=== PATIENT | female | born 1950 | race Caucasian/White ===

== ENCOUNTER → 2016-07-05 | Outpatient (CLI) | payer OTHER ==
[~2016-07-05] MED LIST: CLINDAMYCIN GEL TOP; CLOB-65 EXT; CLOTRIMAZOLE TOP; CLR10 PO; DEXL30CA5 PO; DICL1GEL28 TOP; LEVAAER2 INH; LEVO75CA2 PO; OXYB5TAB74 PO; PYRI60TA2 PO
== END | disposition home or self-care (01) ==
LOC: C.LABBC 12:54
PROVIDERS: ATTEND Psychiatry & Neurology Neurology
DX: G70.00 Myasthenia gravis without (acute) exacerbation (principal)

== ENCOUNTER → 2016-09-22 | Outpatient (CLI) | payer OTHER ==
[~2016-09-22] VITALS: Ht 156.2 cm; Wt 92.1 kg
[2016-09-22 13:58] VITALS: Ht 156.2 cm; Wt 92.1 kg
--- NOTE | 2016-09-22 14:54 | PAT Medication Instructions ---
Service Date September 22, 2016. Current Home Medication List Clobetasol Propionate 0.05% (Temovate 0.05%), 1 APPLN EXT UD PRN for PRN Dexlansoprazole (Dexilant), 1 TAB PO QAM Diclofenac Sod (Voltaren 1% Top Gel), 1 DOSE TOP PRN Levalbuterol (Xopenex Hfa), 2 PUFFS INH Q4 PRN for SOB/Wheezing Levothyroxine Sodium (Tirosint), 75 MCG PO QAM Loratadine (Claritin), 10 MG PO QAM Oxybutynin Chloride (Ditropan), 5 MG PO BID Pyridostigmine Berino (Mestinon), 30 MG PO QID [Clindamycin Gel], 1 DOSE TOP UD PRN for PRN [Clotrimazole], 1 APPLN TOP UD PRN for PRN Medication Instructions For Your Scheduled Surgery - Hold the following medications 24 hours prior to surgery: Clindamycin Gel 1 DOSE TOP UD PRN for PRN Clotrimazole 1 APPLN TOP UD PRN for PRN Diclofenac Sod (Voltaren 1% Top Gel), 1 DOSE TOP PRN Clobetasol Propionate 0.05% (Temovate 0.05%), 1 APPLN EXT UD PRN for PRN - Hold the following medications the morning of surgery: Oxybutynin Chloride (Ditropan), 5 MG PO BID Loratadine (Claritin), 10 MG PO QAM - Take the following medications the morning of surgery with a sip of water: Levothyroxine Sodium (Tirosint), 75 MCG PO QAM Dexlansoprazole (Dexilant), 1 TAB PO QAM Pyridostigmine Berino (Mestinon), 30 MG PO QID Levalbuterol (Xopenex Hfa), 2 PUFFS INH Q4 PRN for SOB/Wheezing (bring with you to hospital on day of surgery) - Take the following medications as scheduled the night before surgery: Oxybutynin Chloride (Ditropan), 5 MG PO BID Pyridostigmine Berino (Mestinon), 30 MG PO QID Levalbuterol (Xopenex Hfa), 2 PUFFS INH Q4 PRN for SOB/Wheezing If you have any questions please call us at [phone] or [phone] ( [place]) or [phone]
--- NOTE | 2016-09-22 15:28 | DIAGNOSTIC IMAGING REPORT ---
CHEST PREADMISSION(PA/LAT) HISTORY: Preop. COMPARISON: Chest 10/31/2015. FINDINGS: The lungs are clear. Cardiac silhouette is top normal in size. No pleural effusions. No pneumothorax. IMPRESSION: No acute process. Electronically signed by: Calvin Aguayo M.D. 09/22/2016 3:27 PM Dictated Date/Time: 09/22/2016 3:25 PM
[2016-09-22 15:39] LABS: BASO % 0.7 %; BASO ABS # 0.05 K/uL (0-0.2); COMPLETE YES; EOS % 4.7 %; HEMATOCRIT 39.7 % (37-47); IG% 0.1 %; LYMPH % 37.6 %; LYMPH ABS # 2.54 K/uL (1.2-3.4); MEAN CELL VOLUME 84.3 fL (80-100); MEAN CORPUSCULAR HEMOGLOBIN 27.8 pg (25-34); MEAN PLATELET VOLUME 10.1 fL (7.4-10.4); NEUT % 47.9 %; PLATELET COUNT 301 K/uL (130-400); RED BLOOD COUNT 4.71 M/uL (4.2-5.4); WHITE BLOOD COUNT 6.75 K/uL (4.8-10.8)
[2016-09-22 15:39] LABS: URINE APPEARANCE CLEAR (CLEAR); URINE BILIRUBIN NEG (NEG); URINE COLOR YELLOW; URINE NITRITE NEG (NEG); URINE PH 5.5 (4.5-7.5); URINE SPECIFIC GRAVITY 1.008 (1.000-1.030); UROBILINOGEN NEG (NEG)
[2016-09-22 15:40] LABS: MANUAL MICROSCOPIC REQUIRED? NO; REVIEW REQ? NO
[2016-09-22 15:51] LABS: INR 0.9 (0.9-1.1); PARTIAL THROMBOPLASTIN RATIO 1.1; PROTHROMBIN TIME (PATIENT) 9.9 SECONDS (9.0-12.0)
[2016-09-23 06:24] LABS: ESTIMATED AVERAGE GLUCOSE 126 mg/dl; HA1C FLAG Normal (Normal)
--- NOTE | 2016-11-30 06:11 | CODING QUERY MEDICAL NECESSITY ---
CQSUPPORTING DIAGNOSIS NEEDED A supporting diagnosis is required for the test/procedure performed on this patient in order for us to be reimbursed by the patient's insurance. Please provide a supporting diagnosis for the following test/procedure listed below next to the test name along with your signature. *If there is no additional diagnosis for this patient that would support the following test/procedure please document that below next to the test/procedure. Test(s)/Procedure(s) that require a supporting diagnosis: DOS 09/22/16 GLYCATED HEMOGLOBIN URINE CULTURE QUERY WAS RETURNED WITH SIGNATURE BUT NO DIAGNOSIS PLEASE ADD DIAGNOSIS AND SIGNATURE THANK YOU Provider Signature: Date: Thank you Isabel Gomes Health Information Management Once completed, please kindly fax back to [phone] For questions please call [phone]
== END | disposition home or self-care (01) ==
LOC: C.LAB 08:00 → EDSTATUS 10-13 11:00
PROVIDERS: ATTEND Orthopaedic Surgery
DX: Z01.818 Encounter for other preprocedural examination (principal); M17.9 Osteoarthritis of knee, unspecified; Z79.899 Other long term (current) drug therapy

== ENCOUNTER → 2016-09-22 | Outpatient (CLI) | payer OTHER ==
[~2016-09-22] MED LIST changes: +DTR/5 PO; -OXYB5TAB74 PO
[2016-09-22 16:27] LABS: ALT/SGPT 40 U/L (12-78); AST/SGOT 6 U/L (15-37); BLOOD UREA NITROGEN 11 mg/dl (7-18); BUN/CREATININE RATIO 17.1 (10-20); CALCIUM 8.8 mg/dl (8.5-10.1); CARBON DIOXIDE 30 mmol/L (21-32); CHLORIDE 107 mmol/L (98-107); CREATININE 0.63 mg/dl (0.60-1.20); GLUCOSE 87 mg/dl (70-99); POTASSIUM 4.2 mmol/L (3.5-5.1); SODIUM 141 mmol/L (136-145)
[2016-09-22 16:39] LABS: ALB/GLOB RATIO 1.2 (0.9-2); ALKALINE PHOSPHATASE 116 U/L (45-117); THYROID STIMULATING HORMONE 0.784 uIu/ml (0.300-4.500)
== END | disposition home or self-care (01) ==
LOC: C.LAB 13:45
PROVIDERS: ATTEND Physician Assistant
DX: G70.00 Myasthenia gravis without (acute) exacerbation (principal)

== ENCOUNTER → 2017-06-30 | Outpatient (CLI) | payer OTHER ==
[2017-06-30 12:40] LABS: BASO % 0.6 %; BASO ABS # 0.04 K/uL (0-0.2); HEMATOCRIT 38.8 % (37-47); HEMOGLOBIN 12.8 g/dL (12.0-16.0); IG# 0.01 K/uL (0.00-0.02); LYMPH % 32.7 %; LYMPH ABS # 2.21 K/uL (1.2-3.4); MEAN CELL VOLUME 85.8 fL (80-100); MEAN CORPUSCULAR HEMOGLOBIN 28.3 pg (25-34); MEAN PLATELET VOLUME 10.3 fL (7.4-10.4); MONO % 9.2 %; MONO ABS # 0.62 K/uL (0.11-0.59); NEUT % 54.4 %; NEUT ABS # 3.68 K/uL (1.4-6.5); PLATELET COUNT 281 K/uL (130-400); RED CELL DISTRIBUTION WIDTH CV 14.7 % (11.5-14.5); WHITE BLOOD COUNT 6.76 K/uL (4.8-10.8)
[2017-06-30 14:33] LABS: ALBUMIN 3.9 gm/dl (3.4-5.0); ALT/SGPT 31 U/L (12-78); BLOOD UREA NITROGEN 17 mg/dl (7-18); CALCIUM 8.9 mg/dl (8.5-10.1); CARBON DIOXIDE 24 mmol/L (21-32); CREATININE 0.71 mg/dl (0.60-1.20); GLUCOSE 93 mg/dl (70-99); POTASSIUM 3.7 mmol/L (3.5-5.1); SODIUM 137 mmol/L (136-145)
[2017-06-30 14:42] LABS: ALKALINE PHOSPHATASE 76 U/L (45-117); AST/SGOT 5 U/L (15-37); TRANSFERRIN 269 mg/dl (200-360)
== END | disposition home or self-care (01) ==
LOC: C.LABMFLN 09:31
PROVIDERS: ATTEND Psychiatry & Neurology Neurology
DX: E78.5 Hyperlipidemia, unspecified (principal); G70.00 Myasthenia gravis without (acute) exacerbation; E03.9 Hypothyroidism, unspecified; R19.7 Diarrhea, unspecified; R53.82 Chronic fatigue, unspecified

== ENCOUNTER → 2017-12-02 | Outpatient (CLI) | payer OTHER ==
--- NOTE | 2017-12-02 10:09 | DIAGNOSTIC IMAGING REPORT ---
HEAD WITHOUT CONTRAST (CT) CLINICAL HISTORY: 67 years-old Female with R53.82 Chronic [id number] Vision [id number] Right-sided he. Acute fatigue with blurry vision and right-sided headache TECHNIQUE: Multiple axial CT images of the head were obtained without contrast. A dose lowering technique was utilized adhering to the principles of ALARA. CT DOSE: 638.56 mGycm COMPARISON: None. FINDINGS: No acute intracranial hemorrhage, midline shift, intracranial mass, hydrocephalus, territorial ischemia or abnormal extra-axial collection. Cerebral vascular calcifications are noted. The calvarium is intact. Mild polypoid mucosal thickening of the right maxillary sinus. Mastoid air cells and middle ear cavities are clear. The soft tissues and orbits are unremarkable. IMPRESSION: No acute intracranial abnormality. The above report was generated using voice recognition software. It may contain grammatical, syntax or spelling errors. Electronically signed by: Praful Andre M.D. 12/02/2017 10:08 AM Dictated Date/Time: 12/02/2017 10:06 AM
== END | disposition home or self-care (01) ==
LOC: C.CTS 09:45
PROVIDERS: ATTEND Physician Assistant
DX: R53.82 Chronic fatigue, unspecified (principal); R51 Headache; H53.9 Unspecified visual disturbance

== ENCOUNTER → 2017-12-30 | Outpatient (CLI) | payer OTHER ==
[2017-12-30 12:37] LABS: BASO % 0.2 %; BASO ABS # 0.02 K/uL (0-0.2); EOS % 0.2 %; EOS ABS # 0.03 K/uL (0-0.5); HEMATOCRIT 39.7 % (37-47); IG# 0.06 K/uL (0.00-0.02); LYMPH % 9.1 %; LYMPH ABS # 1.13 K/uL (1.2-3.4); MEAN CELL VOLUME 85.4 fL (80-100); MEAN CORPUSCULAR HGB CONC 32.7 g/dl (32-36); MEAN PLATELET VOLUME 10.6 fL (7.4-10.4); MONO % 3.2 %; MONO ABS # 0.39 K/uL (0.11-0.59); NEUT % 86.8 %; NEUT ABS # 10.73 K/uL (1.4-6.5); PLATELET COUNT 284 K/uL (130-400); RED CELL DISTRIBUTION WIDTH CV 15.1 % (11.5-14.5); RED CELL DISTRIBUTION WIDTH SD 46.5 fL (36.4-46.3); WHITE BLOOD COUNT 12.36 K/uL (4.8-10.8)
[2017-12-30 13:00] LABS: ALBUMIN 3.7 gm/dl (3.4-5.0); ALKALINE PHOSPHATASE 80 U/L (45-117); ALT/SGPT 35 U/L (12-78); AST/SGOT 7 U/L (15-37); BLOOD UREA NITROGEN 15 mg/dl (7-18); CALCIUM 8.9 mg/dl (8.5-10.1); CARBON DIOXIDE 24 mmol/L (21-32); CREATININE 0.71 mg/dl (0.60-1.20); GLUCOSE 128 mg/dl (70-99); POTASSIUM 3.7 mmol/L (3.5-5.1); SODIUM 137 mmol/L (136-145)
== END | disposition home or self-care (01) ==
LOC: C.LABMFLN 10:35
PROVIDERS: ATTEND Physician Assistant
DX: G70.00 Myasthenia gravis without (acute) exacerbation (principal)

== ENCOUNTER 2018-07-28 12:02 | Inpatient (IN) ==
--- NOTE | 2018-07-28 13:06 | XRay Report ---
SINGLE VIEW CHEST CLINICAL HISTORY: Generalized weakness. FINDINGS: An AP, portable, upright chest radiograph is compared to study dated 07/10/2018. The examinat ion is degraded by portable technique and patient rotation. The cardiomediastinal silhouette is unre markable, noting atherosclerotic calcification of the thoracic aorta. There is mild elevation of the left hemidiaphragm with associated left basilar atelectasis. No airspace consolidation or large pleur al effusion is identified. No pneumothorax is seen. The skeletal structures are osteopenic. The bony thorax is grossly intact. Degenerative change is noted throughout the thoracic spine. IMPRESSION: No acute cardiopulmonary abnormality. Electronically signed by: Ed Reynolds M.D. 07/28/2018 1:04 PM
[2018-07-28 13:27] LABS: Basophils # (auto) 0.01 K/uL (0-0.2); Basophils % (auto) 0.1 %; Hematocrit (blood only) 40.6 % (37-47); Hemoglobin 13.9 g/dL (12.0-16.0); Immature Granulocytes # (auto) 0.02 K/uL (0.00-0.02); Immature Granulocytes % (auto) 0.2 %; Lymphocytes # (auto) 0.89 K/uL (1.2-3.4); Lymphocytes % (auto) 10.3 %; Mean Corpuscular Hgb Conc 34.2 g/dL (32-36); Mean Corpuscular Volume 83.5 fL (80-100); Mean Platelet Volume 10.4 fL (7.4-10.4); Monocytes # (auto) 0.08 K/uL (0.11-0.59); Monocytes % (auto) 0.9 %; Neutrophils # (auto) 7.61 K/uL (1.4-6.5); Neutrophils % (auto) 88.5 %; Platelet Count 289 K/uL (130-400); RDW Coefficient of Variation 14.1 % (11.5-14.5); RDW Standard Deviation 42.8 fL (36.4-46.3); Red Blood Count 4.86 M/uL (4.2-5.4); White Blood Count 8.61 K/uL (4.8-10.8)
[2018-07-28 13:49] LABS: Alanine Aminotransferase 59 U/L (12-78); Albumin Level 4.1 gm/dl (3.4-5.0); Aspartate Aminotransferase 10 U/L (15-37); BUN Creatinine Ratio 14.8 (10-20); Blood Urea Nitrogen 8 mg/dl (7-18); Calcium 8.9 mg/dl (8.5-10.1); Carbon Dioxide 29 mmol/L (21-32); Chloride 105 mmol/L (98-107); Est GFR (Non-African American) 95.8; Glucose 136 mg/dl (70-99); Magnesium 2.1 mg/dl (1.8-2.4); Potassium 2.9 mmol/L (3.5-5.1); Sodium 140 mmol/L (136-145)
[2018-07-28 14:00] LABS: Albumin Globulin Ratio 1.3 (0.9-2); Alkaline Phosphatase 78 U/L (45-117); Bilirubin,Total 0.6 mg/dl (0.2-1); Globulin 3.2 gm/dl (2.5-4.0); Phosphorus 2.9 mg/dl (2.5-4.9); Total Protein 7.3 gm/dl (6.4-8.2)
[2018-07-28 14:18] LABS: Appearance Urine Clear (Clear); Bilirubin Urine Negative (Negative); Blood Urine Negative (Negative); Color Urine Yellow; Glucose Urine UA Negative (Negative); Ketones Urine 2+ (Negative); Leukocyte Esterase Urine Negative (Negative); Nitrite Urine Negative (Negative); Protein Urine Negative (Negative); Specific Gravity Urine 1.013 (1.000-1.030); Urobilinogen Urine Negative (Negative); pH Urine 7.5 (4.5-7.5)
--- NOTE | 2018-07-28 14:24 | Emergency Department Note ---
Entered by Dianne Ricks acting as a scribe for History of Present Illness General Chief complaint: Referred by Doctor Stated complaint: myasthenia gravis- weakness, vision problems Source: patient Mode of arrival: ambulatory Limitations: no limitations History of Present Illness Onset (ago): day(s) 6 Location: chest Pain Consistency: + constant Maximum Pain Intensity: 3 Exacerbated By: + movement Associated symptoms: + weakness and + other (The patient complains of vision problems.) The patient is a 68 year old female with a history of myasthenia gravis and asthma who presents to the ED with complaints of constant weakness that onset 6 days ago. She states that she was referred from her cardiologists office. She notes that she went to the ED on 07/22, 07/23, and 07/24 for weakness, diarrhea, and vision problems. The patient states that on 07/24, she was admitted into the hospital. The patient notes she had a medication reduction at this time. The patient states that her black ash worker changed her medications again on 07/25. She notes that her diarrhea has since resolved. The patient states that movement exacerbates her shortness of breath. The patient complains of weakness and vision problems that are worsening due to her MG. Home Medications Home Medications Medication Instructions Recorded Confirmed Type acetaminophen [Tylenol Extra 1,000 mg PO Q6H PRN 07/28/18 07/28/18 History Strength] clindamycin phosphate 1 applic TOPICAL DAILY PRN 07/28/18 07/28/18 History dexlansoprazole [Dexilant] 30 mg PO QAM 07/28/18 07/28/18 History diphenoxylate-atropine [Lomotil] 1 tab PO Q6H PRN 07/28/18 07/28/18 History ipratropium bromide 2.5 ml INHALATION Q4H PRN 07/28/18 07/28/18 History levalbuterol tartrate 2 puff INHALATION Q4H PRN 07/28/18 07/28/18 History levothyroxine [Tirosint] 75 mcg PO QAM 07/28/18 07/28/18 History mycophenolate mofetil 250 mg PO BID 07/28/18 07/28/18 History mycophenolate mofetil 500 mg PO BID 07/28/18 07/28/18 History ondansetron HCl [Zofran] 4 mg PO BID PRN 07/28/18 07/28/18 History prednisone 5 mg PO Q2D 07/28/18 07/28/18 History prednisone 40 mg PO Q2D 07/28/18 07/28/18 History pyridostigmine bromide 60 mg PO QID 07/28/18 07/28/18 History ranitidine HCl [Zantac] 150 mg PO BID PRN 07/28/18 07/28/18 History Allergies Allergy/AdvReac Type Severity Reaction Status Date / Time adhesive Allergy Unknown skin Verified 07/28/18 14:26 tearing albuterol Allergy Unknown TACHYCARDIA Verified 11/18/15 11:37 amoxicillin Allergy Unknown NAUSEA/VOMI Verified 09/22/16 13:54 TING Cipro Allergy Unknown HIVES Verified 09/22/16 13:54 ciprofloxacin Allergy Unknown HIVES Verified 07/28/18 14:21 docetaxel Allergy Unknown difficulty Verified 09/22/16 13:54 breathing, chest pain fluticasone Allergy Unknown TACHYCARDIA Verified 09/22/16 13:54 moxifloxacin Allergy Unknown PT UNSURE Verified 09/22/16 13:54 salmeterol Allergy Unknown TACHYCARDIA Verified 09/22/16 13:54 Sulfa (Sulfonamide Allergy Unknown HIVES Verified 09/22/16 13:54 Antibiotics) sulfamethoxazole AdvReac Severe nausea/vomi Unverified 07/28/18 14:21 [From Bactrim] ting trimethoprim [From Bactrim] AdvReac Severe nausea/vomi Unverified 07/28/18 14:21 ting Unclassified Drugs Allergy Unknown LAVENDER Uncoded 09/22/16 13:54 DYE-HIVES Past Med/Surg History Medical History History of uterine cancer (Chronic) 2012. S/P hysterectomy History of breast cancer (Chronic) 2012 - s/p R partial mastectomy, chemo, radiation History of hysterectomy (Chronic) GERD (gastroesophageal reflux disease) (Chronic) IBS (irritable bowel syndrome) (Chronic) Hypothyroidism (Chronic) Asthma (Chronic) Myasthenia gravis (Chronic) Surgical History History of lumbar surgery (Chronic) History of carpal tunnel surgery (Chronic) History of cholecystectomy (Chronic) History of appendectomy (Chronic) Hx of tonsillectomy (Chronic) Social History Preferred Language: Ken[place] Communication Ability: Effective Prop And Scenery Maker Required: No Beliefs That Will Affect Care: Restoration Current Living Situation: Family and Other Current Living Situation Comment: lives with Anil lackey and sonRicco Other Information That Helps Us Care for You: No Feels Safe at Home: Yes Smoking Status: Never smoker Hx Alcohol Use: Yes Hx Substance Use: No Review of Systems See HPI for pertinent positives & negatives. and A total of 10 systems reviewed and were otherwise negative Physical Exam Vital Signs Vital Signs - 24 hr 07/28/18 12:03 07/28/18 12:06 07/28/18 12:44 Temperature 36.8 C Temperature Source Oral Oral Sepsis Recent Fever Within 48 Hours No Sepsis New/Unexplained Change in Mental Status No Sepsis Action Taken by Nursing No Action Required Pulse Rate 88 Pulse Rate [Left Finger] Pulse Rhythm [Left Finger] Respiratory Rate 12 Respiratory Effort / Characteristics Non-Labored Spontaneous Respiratory Depth Normal Respiratory Pattern Blood Pressure 177/104 H Blood Pressure [Left Arm] Blood Pressure Mean 128 Blood Pressure Mean [Left Arm] Pulse Oximetry 95 96 Pulse Oximetry [Right Index Finger] Oxygen Delivery Method Room Air Room Air Oxygen Delivery Method [Right Index Finger] 07/28/18 14:03 07/28/18 15:31 07/28/18 15:32 Temperature Temperature Source Sepsis Recent Fever Within 48 Hours Sepsis New/Unexplained Change in Mental Status Sepsis Action Taken by Nursing Pulse Rate 79 Pulse Rate [Left Finger] 78 Pulse Rhythm [Left Finger] Respiratory Rate 18 20 Respiratory Effort / Characteristics Respiratory Depth Respiratory Pattern Blood Pressure 160/109 H Blood Pressure [Left Arm] 174/83 H Blood Pressure Mean Blood Pressure Mean [Left Arm] 113 Pulse Oximetry 96 97 Pulse Oximetry [Right Index Finger] Oxygen Delivery Method Room Air Room Air Oxygen Delivery Method [Right Index Finger] 07/28/18 16:08 Temperature 37.2 C Temperature Source Oral Sepsis Recent Fever Within 48 Hours Sepsis New/Unexplained Change in Mental Status Sepsis Action Taken by Nursing Pulse Rate Pulse Rate [Left Finger] 109 H Pulse Rhythm [Left Finger] Regular Respiratory Rate 14 Respiratory Effort / Characteristics Non-Labored Respiratory Depth Normal Respiratory Pattern Regular Blood Pressure Blood Pressure [Left Arm] 187/98 H Blood Pressure Mean Blood Pressure Mean [Left Arm] 127 Pulse Oximetry 94 Pulse Oximetry [Right Index Finger] 94 Oxygen Delivery Method Room Air Oxygen Delivery Method [Right Index Finger] Room Air GENERAL: Awake, alert, weak-appearing, in no distress, she has some head bobbing. HENT: Normocephalic, atraumatic. Oropharynx unremarkable. EYES: Normal conjunctiva. Sclera non-icteric. NECK: Supple. No nuchal rigidity. RESPIRATORY: Clear to auscultation. No wheezes. Normal respiratory effort. CARDIAC: Normal rate. Normal rhythm. Extremities warm and well perfused. GI: Soft, non-distended. No tenderness to palpation. No rebound or guarding. RECTAL: Deferred. MUSCULOSKELETAL: Atraumatic. Chest examination reveals no tenderness. UPPER EXTREMITIES: Contusions on forearms. LOWER EXTREMITIES: Calves are equal size bilaterally and non-tender. No edema NEURO: Normal sensorium. No sensory or motor deficits noted. No facial droop. SKIN: Warm and dry. No rash or jaundice noted. Course 1222: Past medical records reviewed. The patient was evaluated in room A4, and a complete history and physical examination were performed. 1252: I reviewed the patient's case with Dr. Arjun Hitchcock. He recommends transfer to tertiary care center. 1334: I reviewed the patient's case with Dr. Cameron Liu. He s tates that they are unable to accept the patient due to lack of beds. He says to try IVIG. 1345: I reviewed the patient's case with Dr. Arjun Hitchcock. He recommends [place]. If the patient is still refusing transfer, he states to admit her to the ICU here. 1355: I had an extensive discussion with the patient. She is still refusing transfer to anywhere besides [place]. She is aware of the risks. [facility] has been paged. 1404: I reviewed the patient's [facility]. She will evaluate the patient for further management. 1408: I reviewed the patient's case with Dr. Gonzalez - Industrial Safety And Health Manager. He states that he is unsure if the patient needs ICU care but will happily accept her for further evaluation. Consultations Consultation #1: 1252: I reviewed the patient's case with Dr. Arjun Hitchcock. He recommends transfer to tertiary care center. Time: 12:52 Consultation #2: 1334: I reviewed the patient's case with Dr. Cameron Liu. He states that they are unable to accept the patient due to lack of beds. He says to try IVIG. Time: 13:34 Consultation #3: [id number]: I reviewed the patient's case with Dr. Díaz - Neurology. He recommends [place]. If the patient is still refusing transfer, he states to admit her to the ICU here. Time: 13:45 Additional Consultation(s): 2243: I reviewed the patient's case with [facility] She will evaluate the patient for further management. Medical Decision Making Differential Diagnosis Differential Diagnoses Include: Acute coronary syndrome, myocardial infarction, CVA, TIA, anemia, infection, pneumonia, UTI, pyelonephritis, poor nutrition, dehydration, electrolyte disturbance,hypoglycemia. Medical Records Attestation: I reviewed the patient's medical records. Home Medications Current Medication List: was personally reviewed by me Laboratory Data Attestation: I reviewed the patient's lab results. Result diagrams: 07/28/18 13:15 07/28/18 13:15 Lab Results 07/28/18 07/28/18 07/28/18 Range/Units 13:15 13:15 13:15 WBC 8.61 (4.8-10.8) K/uL RBC 4.86 (4.2-5.4) M/uL Hgb 13.9 (12.0-16.0) g/dL Hct 40.6 (37-47) % MCV 83.5 (80-100) fL MCH 28.6 (25-34) pg MCHC 34.2 (32-36) g/dL RDW Std Deviation 42.8 (36.4-46.3) fL RDW Coeff of Joya 14.1 (11.5-14.5) % Plt Count 289 (130-400) K/uL MPV 10.4 (7.4-10.4) fL Immature Gran % (Auto) 0.2 % Neut % (Auto) 88.5 % Lymph % (Auto) 10.3 % [place] % (Auto) 0.9 % Eos % (Auto) 0.0 % Baso % (Auto) 0.1 % Immature Gran # (Auto) 0.02 (0.00-0.02) K/uL Neut # (Auto) 7.61 H (1.4-6.5) K/uL Lymph # (Auto) 0.89 L (1.2-3.4) K/uL [place] # (Auto) 0.08 L (0.11-0.59) K/uL Eos # (Auto) 0.00 (0-0.5) K/uL Baso # (Auto) 0.01 (0-0.2) K/uL Sodium 140 (136-145) mmol/L Potassium 2.9 L (3.5-5.1) mmol/L Chloride 105 (98-107) mmol/L Carbon Dioxide 29 (21-32) mmol/L Anion Gap 6.0 (3-11) BUN 8 (7-18) mg/dl Creatinine 0.56 L (0.6-1.2) mg/dl Est Cr Clr Drug Dosing Not Reportable Est GFR ( Amer) 111.0 Est GFR (Non-Af Amer) 95.8 BUN/Creatinine Ratio 14.8 (10-20) Glucose 136 H (70-99) mg/dl Calcium 8.9 (8.5-10.1) mg/dl Phosphorus 2.9 (2.5-4.9) mg/dl Magnesium 2.1 (1.8-2.4) mg/dl Total Bilirubin 0.6 (0.2-1) mg/dl AST 10 L (15-37) U/L ALT 59 (12-78) U/L Alkaline Phosphatase 78 (45-117) U/L Troponin I 0.020 (0-0.045) ng/ml Total Protein 7.3 (6.4-8.2) gm/dl Albumin 4.1 (3.4-5.0) gm/dl Globulin 3.2 (2.5-4.0) gm/dl Albumin/Globulin Ratio 1.3 (0.9-2) TSH 0.342 (0.300-4.500) uIu/ml Urine Color Urine Appearance (Clear) Urine pH (4.5-7.5) Ur Specific [place] (1.000-1.030) Urine Protein (Negative) Urine Glucose (UA) (Negative) Urine Ketones (Negative) Urine Blood (Negative) Urine Nitrite (Negative) Urine Bilirubin (Negative) Urine Urobilinogen (Negative) Ur Leukocyte Esterase (Negative) Hepatitis C Ab Screen Neg (Neg) 07/28/18 Range/Units 13:40 WBC (4.8-10.8) K/uL RBC (4.2-5.4) M/uL Hgb (12.0-16.0) g/dL Hct (37-47) % MCV (80-100) fL MCH (25-34) pg MCHC (32-36) g/dL RDW Std Deviation (36.4-46.3) fL RDW Coeff of Joya (11.5-14.5) % Plt Count (130-400) K/uL MPV (7.4-10.4) fL Immature Gran % (Auto) % Neut % (Auto) % Lymph % (Auto) % [place] % (Auto) % Eos % (Auto) % Baso % (Auto) % Immature Gran # (Auto) (0.00-0.02) K/uL Neut # (Auto) (1.4-6.5) K/uL Lymph # (Auto) (1.2-3.4) K/uL [place] # (Auto) (0.11-0.59) K/uL Eos # (Auto) (0-0.5) K/uL Baso # (Auto) (0-0.2) K/uL Sodium (136-145) mmol/L Potassium (3.5-5.1) mmol/L Chloride (98-107) mmol/L Carbon Dioxide (21-32) mmol/L Anion Gap (3-11) BUN (7-18) mg/dl Creatinine (0.6-1.2) mg/dl Est Cr Clr Drug Dosing Est GFR ( Amer) Est GFR (Non-Af Amer) BUN/Creatinine Ratio (10-20) Glucose (70-99) mg/dl Calcium (8.5-10.1) mg/dl Phosphorus (2.5-4.9) mg/dl Magnesium (1.8-2.4) mg/dl Total Bilirubin (0.2-1) mg/dl AST (15-37) U/L ALT (12-78) U/L Alkaline Phosphatase (45-117) U/L Troponin I (0-0.045) ng/ml Total Protein (6.4-8.2) gm/dl Albumin (3.4-5.0) gm/dl Globulin (2.5-4.0) gm/dl Albumin/Globulin Ratio (0.9-2) TSH (0.300-4.500) uIu/ml Urine Color Yellow Urine Appearance Clear (Clear) Urine pH 7.5 (4.5-7.5) Ur Specific [place] 1.013 (1.000-1.030) Urine Protein Negative (Negative) Urine Glucose (UA) Negative (Negative) Urine Ketones 2+ H (Negative) Urine Blood Negative (Negative) Urine Nitrite Negative (Negative) Urine Bilirubin Negative (Negative) Urine Urobilinogen Negative (Negative) Ur Leukocyte Esterase Negative (Negative) Hepatitis C Ab Screen (Neg) Imaging Data Radiologist's Impression: Radiology results as stated below per my review and the radiologist's interpretation: SINGLE VIEW CHEST CLINICAL HISTORY: Generalized weakness. FINDINGS: An AP, portable, upright chest radiograph is compared to study dated 07/10/2018. The examination is degraded by portable technique and patient rotation. The cardiomediastinal silhouette is unremarkable, noting atherosc lerotic calcification of the thoracic aorta. There is mild elevation of the left hemidiaphragm with associated left basilar atelectasis. No airspace consolidation or large pleural effusion is identified. No pneumothorax is seen. The skeletal structures are osteopenic. The bony thorax is grossly intact. Degenerative change is noted throughout the thoracic spine. IMPRESSION: No acute cardiopulmonary abnormality. Electronically signed by: Ed Reynolds M.D. 07/28/2018 1:04 PM Dictated: 07/28/18 1303 Transcribed: 07/28/18 1303 ECG Data Attestation: I personally reviewed and interpreted this ECG as follows: Indication: weakness Rate (beats per minute): 87 Rhythm: sinus rhythm Findings: + other (Normal axis ) and + PAC; no PVC, no ST depression and no ST elevation Blood Pressure Blood Pressure Findings: Elevated blood pressure Blood Pressure Disposition: further management by hospitalist [facility] Narrative Patient is a 68-year-old female with a history significant for myasthenia gravis with worsening weakness and blurry vision follows with neurology. Was referred here today from black ash worker office where she had a cardiac echo done showing severe stenosis. Patient states that she had a diarrheal illness over the past weekend seen several times at [facility] and hospitalized overnight. Had some changes in her metastatic regimens are neurologist 2 days ago. Worsening weakness and presents here. NIF 47 here. EKG without appreciable changes. Do not believe this is cardiac. Her diarrhea is resolved. Discussed with neurology who recommends transfer to tertiary care center for possible jackson smapheresis. Discussed the patient who wished to be transferred to [place]. Her she states that they would take the patient if they had an available bed but they are unable. Patient refuses after multiple discussions with her and discussion of the risks and benefits along with Dr. Díaz's recommendation transfer to another tertiary center such as [place] or [place]. Discussed with Dr. Díaz recommend ICU care in the amount in the neurology team could be consulted here. [facility] care [facility]. Patient stable here not requiring urgent intubation. Neurology is considering additional measures such as burst steroids versus IVIG but no final decision made. CCM called and no IVIG is available here. Transferred [place] ICU [place] [facility] [place]. Impression & Plan Myasthenia gravis with exacerbation Discharge Plan Visit Data *Final* Discharge Date/Time: 07/28/18 15:31 Chief Complaint: Referred by Doctor Stated Complaint: myasthenia gravis- weakness, vision problems ED Provider: Sunny Sanchez Discharge Problem: Myasthenia gravis with exacerbation Patient Disposition: Admitted As Inpatient Discharge Instructions Interventions: ED Discharge Assessment Last Done: 07/28/18 15:31 The scribe's documentation has been prepared under my direction and personally reviewed by me in its entirety. I confirm that the note above accurately reflects all work, treatment, procedures, and medical decision making performed by me.
--- NOTE | 2018-07-28 15:22 | History & Physical Report ---
Date of Service July 28, 2018 Assessment & Plan (1) Myasthenia gravis: Hx myasthenia gravis on mestinon, cellcept, prednisone presented to ER with c/o increased weakness over the past week and c/o weakness of neck and intermittent blurred vision. Pt with recent N/V/D was hospitalized 07/24/18-07/25/18 [facility]. Patient reports that her Mestinon was decreased to 30 mg 4 times daily and was recommended that her steroid be held, however pt took half the dose. She followed with her neurologist Dr Díaz on 07/26/18 and her normal dose of prednisone 40 mg alternating with 5 mg every other day was continued. CellCept was increased to 750 mg twice daily and Mestinon 60 mg 4 times daily. -In ER pt vitals stable with T: 30 6.8C, P: 88, R: 12, BP 177/104 down to 174/83, 95-96% on room air. WBC: 8, Hgb: 13.9, K: 2.9, BUN: 8, Cr: 0.5, gluc: 136, Troponin: 0.02, TSH: 0.3 CXR: No acute cardiopulmonary abnormality. -ER spoke with Dr Díaz who recommended transfer to tertiary center. Pt wanted to go to [facility] only and reported no ICU beds were available at this time -Observation in ICU with close monitoring of vitals and respiratory status -continue home meds of mesinon, cellcept, prednisone at this time (2) Hypothyroidism: -continue tirosint (3) Asthma: No wheezing on exam -continue xopenex prn (4) IBS (irritable bowel syndrome): Hx recent N/V/D last week. Had negative stool culture at that time. Nausea, vomiting, diffuse diarrhea symptoms have resolved. She has chronic intermittent loose stools which she takes Lomotil once daily as needed, reports had 1 today. -continue lomotil prn (5) GERD (gastroesophageal reflux disease): -continue H2 ileana prn (6) History of breast cancer: S/P R partial mastectomy, chemo and radiation (7) History of uterine cancer: S/P surgery Admit ICU Plan to transfer to [facility] when bed available for further evaluation and treatment. Full Code as per discussion with pt Follows with Ruth Rivera for routine care Pt was seen with Dr Torrez. See addendum History of Present Illness Chief Complaint: Increased weakness Primary Care Provider: Ruth Covarrubias Pt is 68 y/o F with PMH hypothyroidism, IBS, breast cancer s/p surgery, chemo & radiation, uterine cancer s/p surgery, myasthenia gravis on mestinon, cellcept, prednisone presented to ER with c/o increased weakness over the past week. Pt c/o weakness of neck and having intermittent blurred vision. Was having increased upper extremity weakness patient feels was worse this morning and feels it has improved this afternoon. Feels like having less neck weakness this afternoon so. Patient reports history of recent nausea vomiting diarrhea and was hospitalized 07/24/18-07/25/18 [facility]. Had negative stool culture at that time. Patient states that nausea vomiting diarrhea symptoms have resolved. She has chronic intermittent loose stools which she takes Lomotil once daily as needed reports had today. Patient reports that her Mestinon was decreased to 30 mg 4 times daily and was recommended that her steroid be held, however patient reports took half the dose of her steroid. She followed with Dr. Daíz her neurologist on 07/26/18 and her normal dose of prednisone 40 mg alternating with 5 mg every other day was continued. CellCept was increased to 750 mg twice daily and Mestinon 60 mg 4 times daily. Patient reports history of flare in 2018 which was able to be treated outpatient and at that time her symptoms neck weakness, blurry vision, ptsosis and some respiratory symptoms. Denies fever/chills, diaphoresis, THAO, dizziness, syncope, vision loss, CP, SOB, orthopnea, palpitations, cough, sore throat, choking, otalgia, rhinorrhea, abd ominal pain, paresthesias, extremity edema, rashes, urinary symptoms. Allergies Allergy/AdvReac Type Severity Reaction Status Date / Time adhesive Allergy Unknown skin Verified 07/28/18 14:26 tearing albuterol Allergy Unknown TACHYCARDIA Verified 11/18/15 11:37 amoxicillin Allergy Unknown NAUSEA/VOMI Verified 09/22/16 13:54 TING Cipro Allergy Unknown HIVES Verified 09/22/16 13:54 ciprofloxacin Allergy Unknown HIVES Verified 07/28/18 14:21 docetaxel Allergy Unknown difficulty Verified 09/22/16 13:54 breathing, chest pain fluticasone Allergy Unknown TACHYCARDIA Verified 09/22/16 13:54 moxifloxacin Allergy Unknown PT UNSURE Verified 09/22/16 13:54 salmeterol Allergy Unknown TACHYCARDIA Verified 09/22/16 13:54 Sulfa (Sulfonamide Allergy Unknown HIVES Verified 09/22/16 13:54 Antibiotics) sulfamethoxazole AdvReac Severe nausea/vomi Unverified 07/28/18 14:21 [From Bactrim] ting trimethoprim [From Bactrim] AdvReac Severe nausea/vomi Unverified 07/28/18 14:21 ting Unclassified Drugs Allergy Unknown LAVENDER Uncoded 09/22/16 13:54 DYE-HIVES Home Medications Home Medications Medication Instructions Recorded Confirmed Type acetaminophen [Tylenol Extra 1,000 mg PO Q6H PRN 07/28/18 07/28/18 History Strength] clindamycin phosphate 1 applic TOPICAL DAILY PRN 07/28/18 07/28/18 History dexlansoprazole [Dexilant] 30 mg PO QAM 07/28/18 07/28/18 History diphenoxylate-atropine [Lomotil] 1 tab PO Q6H PRN 07/28/18 07/28/18 History ipratropium bromide 2.5 ml INHALATION Q4H PRN 07/28/18 07/28/18 History levalbuterol tartrate 2 puff INHALATION Q4H PRN 07/28/18 07/28/18 History levothyroxine [Tirosint] 75 mcg PO QAM 07/28/18 07/28/18 History mycophenolate mofetil 250 mg PO BID 07/28/18 07/28/18 History mycophenolate mofetil 500 mg PO BID 07/28/18 07/28/18 History ondansetron HCl [Zofran] 4 mg PO BID PRN 07/28/18 07/28/18 History prednisone 5 mg PO Q2D 07/28/18 07/28/18 History prednisone 40 mg PO Q2D 07/28/18 07/28/18 History pyridostigmine bromide 60 mg PO QID 07/28/18 07/28/18 History ranitidine HCl [Zantac] 150 mg PO BID PRN 07/28/18 07/28/18 History Past Med/Surg History Medical History History of uterine cancer (Chronic) 2013. S/P hysterectomy History of breast cancer (Chronic) 2013 - s/p R partial mastectomy, chemo, radiation History of hysterectomy (Chronic) GERD (gastroesophageal reflux disease) (Chronic) IBS (irritable bowel syndrome) (Chronic) Hypothyroidism (Chronic) Asthma (Chronic) Myasthenia gravis (Chronic) Surgical History History of lumbar surgery (Chronic) History of carpal tunnel surgery (Chronic) History of cholecystectomy (Chronic) History of appendectomy (Chronic) Hx of tonsillectomy (Chronic) Social History Preferred Language: Lao Communication Ability: Effective Corrections Unit Supervisor Required: No Beliefs That Will Affect Care: Holiness Current Living Situation: Family and Other Current Living Situation Comment: lives with Anil lackey and sonRicco Other Information That Helps Us Care for You: No Feels Safe at Home: Yes Smoking Status: Never smoker Hx Alcohol Use: Yes Hx Substance Use: No Review of Systems All systems reviewed & are unremarkable except as noted in HPI & below Physical Exam Vital Signs (Past 24 Hours): Last Vital Signs Temp 36.8 C 07/28/18 12:06 Pulse 78 07/28/18 14:03 Resp 18 07/28/18 14:03 BP 174/83 H 07/28/18 14:03 Pulse Ox 96 07/28/18 14:03 Physical Exam: General: no acute distress, overweight Head: normocephalic, atraumatic Eyes: PERRL, EOM's intact, conjunctiva non-injected, anicteric ENT: normal inspection external ears, nose, mucous membranes moist Neck: supple, trachea midline, some noted weakness with extension and flexion Lungs: clear, no respiratory distress, no wheezing/rhonchi/rales CV: RRR, systolic murmur, no pretibial edema Abd: normal BS, soft, non-tender Ext: no cyanosis, no calf tenderness, strength 5/5 equal bilateral upper and lower extremities, strong and equal software development advisor strength Neuro: A&O x 3, noted weakness neck, otherwise no focal deficits noted, normal affect Skin: warm, dry Results & Data Laboratory Results Short CBC 07/28/18 Range/Units 13:15 WBC 8.61 (4.8-10.8) K/uL Hgb 13.9 (12.0-16.0) g/dL Hct 40.6 (37-47) % Plt Count 289 (130-400) K/uL BMP 07/28/18 13:15 Sodium 140 Potassium 2.9 L Chloride 105 Carbon Dioxide 29 BUN 8 Creatinine 0.56 L Glucose 136 H Calcium 8.9 Cardiac Enzymes 07/28/18 Range/Units 13:15 Troponin I 0.020 (0-0.045) ng/ml Liver Function 07/28/18 Range/Units 13:15 Total Bilirubin 0.6 (0.2-1) mg/dl AST 10 L (15-37) U/L ALT 59 (12-78) U/L Alkaline Phosphatase 78 (45-117) U/L Albumin 4.1 (3.4-5.0) gm/dl Urine 07/28/18 Range/Units 13:40 Urine Color Yellow Urine Appearance Clear (Clear) Urine pH 7.5 (4.5-7.5) Ur Specific [place] 1.013 (1.000-1.030) Urine Protein Negative (Negative) Urine Glucose (UA) Negative (Negative) Diagnostic Findings CXR: IMPRESSION: No acute cardiopulmonary abnormality. Supervising Physician Co-Signing Physician Notes HISTORY: Record reviewed. Patient interviewed and examined. Care coordinated with Tasneem Celaya PA-C. Please refer to her documentation for patient's history. Briefly, 68 YO female with history of myasthenia gravis with apparent flare. Experiencing blurred vision and weakness of cervical muscles. No symptoms of aspiration. No fever, cough. Has some dyspnea on exertion. EXAM: General- no distress Lungs- clear to auscultation; no respiratory distress Cardiovascular- RRR; III/ systolic murmur at base; no gallop; no JVD; no pretibial edema Abdomen- + bowel sounds, soft, nontender Extremities- no cyanosis; no calf tenderness Neuro- alert, oriented; PERRL, EOMI; weakness of neck extension; motor strength extremities 5/5 Skin- warm & dry DATA: K 2.9. Mg 2.1. Other lab studies as noted. Chest x-ray negative. EKG performed at 1222 reviewed and demonstrated SR at 90 / minute, PAC's. ASSESSMENT AND PLAN: Flare mysasthenia gravis. ED provider discussed case with Neurology. Received IV methylprednisolone 60 mg. Transfer to [facility] for tertiary care services recommended and arrangements are being made. Hypokalemia. Received KCl 40 mEq PO. Follow. Please refer to ASIA Mcnulty's documentation for discussion of other issues.
[2018-07-28] MEDS ORDERED: ICU PROTOCOL FOR HYPERGLYCEMIA PRN (16:08)
[2018-07-28] MEDS ORDERED: IPRATROPIUM BROMIDE NEB SOLN 0.02% 2.5 ML VIAL INH PRN (16:08)
[2018-07-28] MEDS ORDERED: DIPHENOXYLATE/ATROPINE 2.5/0.025MG TAB PO PRN (16:08)
[2018-07-28] MEDS ORDERED: POTASSIUM CHLORIDE PWD 20 MEQ PACK PO ONE (16:45)
[2018-07-28 16:47] VITALS: TEMP 99; O2SAT 94
[2018-07-28 16:50] LABS: Partial Thromboplastin Ratio 0.9; Partial Thromboplastin Time 24.8 Seconds (21.0-31.0); Prothrombin Time 10.6 Seconds (9.0-12.0)
[2018-07-28] MEDS ORDERED: ENOXAPARIN INJ 40 MG/0.4 ML SYR SQ SCH (17:00)
[2018-07-28] MEDS ORDERED: PYRIDOSTIGMINE BROMIDE 60 MG TAB PO SCH (17:00)
[2018-07-28] MEDS ORDERED: methylPREDNISolone 125 MG/2 ML VIAL IV STA (17:35)
--- NOTE | 2018-07-28 17:35 | Critical Care Consultation ---
Date of Consultation July 28, 2018 Assessment & Plan (1) Myasthenia gravis with exacerbation: Impression: 1. Exacerbation of myasthenia gravis. 2. Asthma not in exacerbation. 3. Hypertension, new. 4. Hypothyroidism, allergic to all supplements except Tirosint. 5. History of breast CA, status post lobectomy. 6. Chronic back pain secondary to lumbar radiculopathy status post laminectomy. Plan: 1. Continue with CellCept twice daily. 2. I will start the patient on Solu-Medrol 60 mg IV every 6 hours. 3. Continue Mestinon. 4. Transfer to [facility] once bed is available. For plasmapheresis. 5. Continue her home medication with Tirosint. 6. Replete her potassium. 7. Neurology consult. 8. DVT prophylaxis. 9. Discussed with the staff and with the patient in details. Thank you, critical care time spent with the patient was 45 minutes. History of Present Illness Reason for Consultation: Myasthenia gravis crisis Requesting Physician: Dr. Torrez Attending Physician: Brayden Torrez MD History of Present Illness Dear Dr. Torrez: Thank you for the kind referral Mrs. Kim to critical care service. This is 68-year-old female with history of myasthenia gravis, has been treated as an outpatient with steroids including prednisone with alternating dose of 5/40, CellCept, Mestinon, recently the patient has RSV infection back in May over 6 weeks ago, the patient presented recently also with increased weakness in her neck to [facility] where she was advised to be seen by Dr. Díaz who is her neurologist. Apparently she was instructed to decrease the dose of Mestinon and stop the prednisone until seen by Dr. Díaz. The patient today was seen by her special education paraeducator apparently and she was sent to the ER due to persistent weakness and dysphonia. She denies any difficulty with dysphagia or inability to monitor her secretions. She sleep in a recumbent position due to shortness of breath laying down. She has been ambulatory without difficulty. She denies any chest pain, no nausea or vomiting reported. No diarrhea and no wheezing. She had one episode of myasthenia gravis crisis in the past, did not require intubation, she has not had any flareup since October of last year. Her diagnosis dates back to 4 years ago. In the ED, the patient underwent workup including measurement of negative inspiratory force, and was -48. The patient was seen by Dr. Díaz who is her neurologist, and the concern was heading towards myasthenia crisis and [facility] was contacted to transfer the patient for plasmapheresis. There is a national shortage on IVIG, and no adjustment in her medication was recommended at this point. The rest of her review of system otherwise was unremarkable. She does have thickening in her eyes but no proptosis. No visual disturbances. She has no weakness or incoordination in her proximal girdles or large muscle group. Allergies Allergy/AdvReac Type Severity Reaction Status Date / Time adhesive Allergy Unknown skin Verified 07/28/18 14:26 tearing albuterol Allergy Unknown TACHYCARDIA Verified 11/18/15 11:37 amoxicillin Allergy Unknown NAUSEA/VOMI Verified 09/22/16 13:54 TING Cipro Allergy Unknown HIVES Verified 09/22/16 13:54 ciprofloxacin Allergy Unknown HIVES Verified 07/28/18 14:21 docetaxel Allergy Unknown difficulty Verified 09/22/16 13:54 breathing, chest pain fluticasone Allergy Unknown TACHYCARDIA Verified 09/22/16 13:54 moxifloxacin Allergy Unknown PT UNSURE Verified 09/22/16 13:54 salmeterol Allergy Unknown TACHYCARDIA Verified 09/22/16 13:54 Sulfa (Sulfonamide Allergy Unknown HIVES Verified 09/22/16 13:54 Antibiotics) sulfamethoxazole AdvReac Severe nausea/vomi Unverified 07/28/18 14:21 [From Bactrim] ting trimethoprim [From Bactrim] AdvReac Severe nausea/vomi Unverified 07/28/18 14:21 ting Unclassified Drugs Allergy Unknown LAVENDER Uncoded 09/22/16 13:54 DYE-HIVES Home Medications Home Medications Medication Instructions Recorded Confirmed Type acetaminophen [Tylenol Extra 1,000 mg PO Q6H PRN 07/28/18 07/28/18 History Strength] clindamycin phosphate 1 applic TOPICAL DAILY PRN 07/28/18 07/28/18 History dexlansoprazole [Dexilant] 30 mg PO QAM 07/28/18 07/28/18 History diphenoxylate-atropine [Lomotil] 1 tab PO Q6H PRN 07/28/18 07/28/18 History ipratropium bromide 2.5 ml INHALATION Q4H PRN 07/28/18 07/28/18 History levalbuterol tartrate 2 puff INHALATION Q4H PRN 07/28/18 07/28/18 History levothyroxine [Tirosint] 75 mcg PO QAM 07/28/18 07/28/18 History mycophenolate mofetil 250 mg PO BID 07/28/18 07/28/18 History mycophenolate mofetil 500 mg PO BID 07/28/18 07/28/18 History ondansetron HCl [Zofran] 4 mg PO BID PRN 07/28/18 07/28/18 History prednisone 5 mg PO Q2D 07/28/18 07/28/18 History prednisone 40 mg PO Q2D 07/28/18 07/28/18 History pyridostigmine bromide 60 mg PO QID 07/28/18 07/28/18 History ranitidine HCl [Zantac] 150 mg PO BID PRN 07/28/18 07/28/18 History Patient History Medical History History of uterine cancer (Chronic) 2013. S/P hysterectomy History of breast cancer (Chronic) 2012 - s/p R partial mastectomy, chemo, radiation History of hysterectomy (Chronic) GERD (gastroesophageal reflux disease) (Chronic) IBS (irritable bowel syndrome) (Chronic) Hypothyroidism (Chronic) Asthma (Chronic) Myasthenia gravis (Chronic) Surgical History History of lumbar surgery (Chronic) History of carpal tunnel surgery (Chronic) History of cholecystectomy (Chronic) History of appendectomy (Chronic) Hx of tonsillectomy (Chronic) Social History Preferred Language: Slovak Communication Ability: Effective Case Manager Required: No Beliefs That Will Affect Care: Episcopalian Current Living Situation: Family and Other Current Living Situation Comment: lives with Anil lackey and sonRicco Other Information That Helps Us Care for You: No Feels Safe at Home: Yes Smoking Status: Never smoker Hx Alcohol Use: Yes Hx Substance Use: No Review of Systems Review of system was unremarkable except for the above. Physical Exam Vital Signs (Past 24 Hours): Last Vital Signs Temp 37.2 C 07/28/18 16:08 Pulse 109 H 07/28/18 16:08 Resp 14 07/28/18 16:08 BP 187/98 H 07/28/18 16:08 Pulse Ox 94 07/28/18 16:08 Physical Exam: Vital signs remained stable, blood pressure in fact is elevated at 180 systolic, she has no known history of hypertension, S1-S2 regular rate and rhythm, lungs with distant breath sounds, no wheezing, abdomen is benign, no edema in the periphery. Neurologically the patient has flickering in her upper eyelids, no proptosis, no nystagmus, pupils are equal reacting, able to lift up her head off the pillow, no weakness in her tongue, facial muscles, no stridor, able to speak in full sentences, minimal dysphonia, no dysphagia, 5 over 5 x 4 extremities in the periphery, no sensory loss. Results & Data Laboratory Results Her labs were reviewed and noted for hypokalemia which was repleted. Diagnostic Findings Chest x-ray reviewed which showed bibasilar atelectasis, no loss of volume. Negative inspiratory force was 48-.
[2018-07-28] MEDS ORDERED: methylPREDNISolone 60 MG in SYRINGE 0 ML IV ONE (17:45)
[2018-07-28] MEDS ORDERED: ACETAMINOPHEN 325 MG TAB PO STA (18:33)
--- NOTE | 2018-07-28 18:50 | Discharge Summary ---
Date of Service July 28, 2018 Admission HPI Per Admitting Provider Pt is 68 y/o F with PMH hypothyroidism, IBS, breast cancer s/p surgery, chemo & radiation, uterine cancer s/p surgery, myasthenia gravis on mestinon, cellcept, prednisone presented to ER with c/o increased weakness over the past week. Pt c/o weakness of neck and having intermittent blurred vision. Was having increased upper extremity weakness patient feels was worse this morning and feels it has improved this afternoon. Feels like having less neck weakness this afternoon so. Patient reports history of recent nausea vomiting diarrhea and was hospitalized 07/24/18-07/25/18 [facility]. Had negative stool culture at that time. Patient states that nausea vomiting diarrhea symptoms have resolved. She has chronic intermittent loose stools which she takes Lomotil once daily as needed reports had today. Patient reports that her Mestinon was decreased to 30 mg 4 times daily and was recommended that her steroid be held, however patient reports took half the dose of her steroid. She followed with Dr. Díaz her neurologist on 07/26/18 and her normal dose of prednisone 40 mg alternating with 5 mg every other day was continued. CellCept was increased to 750 mg twice daily and Mestinon 60 mg 4 times daily. Patient reports history of flare in 2018 which was able to be treated outpatient and at that time her symptoms neck weakness, blurry vision, ptsosis and some respiratory symptoms. Denies fever/chills, diaphoresis, THAO, dizziness, syncope, vision loss, CP, SOB, orthopnea, palpitations, cough, sore throat, choking, otalgia, rhinorrhea, abdominal pain, paresthesias, extremity edema, rashes, urinary symptoms. Admission Exam Per Admitting Provider General: no acute distress, overweight Head: normocephalic, atraumatic Eyes: PERRL, EOM's intact, conjunctiva non-injected, anicteric ENT: normal inspection external ears, nose, mucous membranes moist Neck: supple, trachea midline, some noted weakness with extension and flexion Lungs: clear, no respiratory distress, no wheezing/rhonchi/rales CV: RRR, systolic murmur, no pretibial edema Abd: normal BS, soft, non-tender Ext: no cyanosis, no calf tenderness, strength 5/5 equal bilateral upper and lower extremities, strong and equal rn family practice strength Neuro: A&O x 3, noted weakness neck, otherwise no focal deficits noted, normal affect Skin: warm, dry Principal Diagnosis flare myasthenia gravis hypokalemia Discharge Data Allergies Allergy/AdvReac Type Severity Reaction Status Date / Time adhesive Allergy Unknown skin Verified 07/28/18 14:26 tearing albuterol Allergy Unknown TACHYCARDIA Verified 11/18/15 11:37 amoxicillin Allergy Unknown NAUSEA/VOMI Verified 09/22/16 13:54 TING Cipro Allergy Unknown HIVES Verified 09/22/16 13:54 ciprofloxacin Allergy Unknown HIVES Verified 07/28/18 14:21 docetaxel Allergy Unknown difficulty Verified 09/22/16 13:54 breathing, chest pain fluticasone Allergy Unknown TACHYCARDIA Verified 09/22/16 13:54 moxifloxacin Allergy Unknown PT UNSURE Verified 09/22/16 13:54 salmeterol Allergy Unknown TACHYCARDIA Verified 09/22/16 13:54 Sulfa (Sulfonamide Allergy Unknown HIVES Verified 09/22/16 13:54 Antibiotics) sulfamethoxazole AdvReac Severe nausea/vomi Unverified 07/28/18 14:21 [From Bactrim] ting trimethoprim [From Bactrim] AdvReac Severe nausea/vomi Unverified 07/28/18 14:21 ting Unclassified Drugs Allergy Unknown LAVENDER Uncoded 09/22/16 13:54 DYE-HIVES Consultations 07/28/18 14:07 ED Decision to Admit Stat 07/28/18 16:08 Consult Case Management - Discharge Planning Routine Consult Hemodialysis Lab Technician Routine Hospital Course (1) Myasthenia gravis: Hx myasthenia gravis on mestinon, cellcept, prednisone presented to ER with c/o increased weakness over the past week and c/o weakness of neck and intermittent blurred vision. Pt with recent N/V/D was hospitalized 07/24/18-07/25/18 [facility]. Patient reports that her Mestinon was decreased to 30 mg 4 times daily and was recommended that her steroid be held, however pt took half the dose. She followed with her neurologist Dr Díaz on 07/26/18 and her normal dose of prednisone 40 mg alternating with 5 mg every other day was continued. CellCept was increased to 750 mg twice daily and Mestinon 60 mg 4 times daily. -In ER pt vitals stable with T: 30 6.8C, P: 88, R: 12, BP 177/104 down to 174/83, 95-96% on room air. WBC: 8, Hgb: 13.9, K: 2.9, BUN: 8, Cr: 0.5, gluc: 136, Troponin: 0.02, TSH: 0.3 CXR: No acute cardiopulmonary abnormality. -ER spoke with Dr Díaz who recommended transfer to tertiary center. Pt wanted to go to [facility] only and reported no ICU beds were available at this time -Observation in ICU with close monitoring of vitals and respiratory status -continue home meds of mesinon, cellcept, prednisone at this time (2) Hypothyroidism: -continue tirosint (3) Asthma: No wheezing on exam -continue xopenex prn (4) IBS (irritable bowel syndrome): Hx recent N/V/D last week. Had negative stool culture at that time. Nausea, vomiting, diffuse diarrhea symptoms have resolved. She has chronic intermittent loose stools which she takes Lomotil once daily as needed, reports had 1 today. -continue lomotil prn (5) GERD (gastroesophageal reflux disease): -continue H2 ileana prn (6) History of breast cancer: S/P R partial mastectomy, chemo and radiation (7) History of uterine cancer: S/P surgery Admit ICU Plan to [place] [facility] [place] bed available for further evaluation and treatment. Full Code as per discussion with pt Follows with [facility] Rivera for routine care Pt was seen with Dr Torrez. See addendum Total Time Total Time Spent Total Time Spent (In Minutes): 30 Discharge Plan Discharge Items Patient Disposition: Transfer Acute Care Hospital Reason For Visit: MYASTHENIA GRAVIS Discharge Diagnosis: flare myasthenia gravis Condition: Fair Discharge Goals: Improve disease control Activity: As commented below Activity Comment: with assistance until better Non-emergency contact: Primary Care Provider, Hospitalist and Neurologist Call non-emergency contact if: you have any medication questions and your symptoms worsen Follow-up/Referrals: Dylan Díaz III, MD [Physician] - Ruth Covarrubias, C.RKristynNKristynPKristyn [Primary Care Provider] - Diet: Heart Healthy Add Provider Instructions: Thank you for receiving this patient in transfer. Please call if you have any questions. Brayden Torrez Prescriptions: Continued mycophenolate mofetil 250 mg capsule 250 mg PO BID RF: 0 ondansetron HCl [Zofran] 4 mg Tablet 4 mg PO BID PRN (Reason: Nausea And Vomiting) RF: 0 prednisone 20 mg tablet 40 mg PO Q2D RF: 0 prednisone 5 mg tablet 5 mg PO Q2D RF: 0 diphenoxylate-atropine [Lomotil] 2.5-0.025 mg Tablet 1 tab PO Q6H PRN (Reason: Diarrhea) RF: 0 acetaminophen [Tylenol Extra Strength] 500 mg Tablet 1,000 mg PO Q6H PRN (Reason: pain/fever) RF: 0 clindamycin phosphate 1 % gel 1 applic topical DAILY PRN (Reason: Rash) RF: 0 ranitidine HCl [Zantac] 150 mg Tablet 150 mg PO BID PRN (Reason: Gi Upset) RF: 0 pyridostigmine bromide 60 mg tablet 60 mg PO QID RF: 0 levalbuterol tartrate 45 mcg/actuation HFA aerosol inhaler 2 puff Inhalation Q4H PRN (Reason: Shortness Of Breath Or Wheezing) RF: 0 Dexilant 30 mg capsule,biphase delayed releas 30 mg PO QAM RF: 0 Tirosint 75 mcg capsule 75 mcg PO QAM RF: 0 mycophenolate mofetil 500 mg Tablet 500 mg PO BID RF: 0 ipratropium bromide 0.02 % solution 2.5 ml Inhalation Q4H PRN (Reason: Shortness Of Breath Or Wheezing) RF: 0 Stand-Alone Forms: [facility] Discharge Orders: Discharge Order (Routine); Ordered 07/28/18 Ordered By: Tasneem Mcnulty Admission Data Admit Date/Time: 07/28/18 15:06 Attending Provider: Brayden Torrez Admit Provider: Brayden Torrez Primary Care Provider: Ruth Covarrubias Other Providers: Brayden Torrez ; Al Porras Service: Intensive Care Unit Supervising Physician Co-Signing Physician Notes Supervising Physician Co-Signing Physician Notes HISTORY: Record reviewed. Patient interviewed and examined. Care coordinated with Tasneem Celaya PA-C. Please refer to her documentation for patient's history. Briefly, 68 YO female with history of myasthenia gravis with apparent flare. Experiencing blurred vision and weakness of cervical muscles. No symptoms of aspiration. No fever, cough. Has some dyspnea on exertion. EXAM: General- no distress Lungs- clear to auscultation; no respiratory distress Cardiovascular- RRR; III/ systolic murmur at base; no gallop; no JVD; no pretibial edema Abdomen- + bowel sounds, soft, nontender Extremities- no cyanosis; no calf tenderness Neuro- alert, oriented; PERRL, EOMI; weakness of neck extension; motor strength extremities 5/5 Skin- warm & dry DATA: K 2.9. Mg 2.1. Other lab studies as noted. Chest x-ray negative. EKG performed at 1222 reviewed and demonstrated SR at 90 / minute, PAC's. ASSESSMENT AND PLAN: Flare mysasthenia gravis. ED provider discussed case with Neurology. Received IV methylprednisolone 60 mg. Transfer [place] [facility] [place] services recommended and arrangements are being made. Hypokalemia. Received KCl 40 mEq PO. Follow. Please refer to ASIA Mcnulty's documentation for discussion of other issues. Brayden Torrez MD
[2018-07-28 18:55] VITALS: BP 187/98; PULSE 109
[2018-07-28] MEDS ORDERED: MYCOPHENOLATE MOFETIL 250 MG CAP PO SCH ×2 (21:00)
[2018-07-29] MEDS ORDERED: PANTOprazole 40 MG TAB PO SCH (09:00)
[2018-07-29] MEDS ORDERED: predniSONE 5 MG TAB PO SCH (09:00)
[2018-07-30] MEDS ORDERED: predniSONE 20 MG TAB PO SCH (09:00)
== END 2018-07-28 20:14 | disposition short-term general hospital (02) | DRG 57 ==
LOC: ED 12:02 → 1E 15:06